=== PATIENT | female | born 1935 | race Caucasian/White ===

== ENCOUNTER 2019-06-25 14:52 | Inpatient (IN) | payer MEDICARE ==
[~2019-06-25] VITALS: Ht 152.4 cm; Wt 72.6 kg
[2019-06-28] MEDS ORDERED: GLIPIZIDE10 MG PO (13:56)
[2019-06-28] MEDS ORDERED: TIROSINT50 MCG PO (13:56)
[2019-06-28] MEDS ORDERED: LOVASTATIN10 MG PO (13:57)
[2019-06-28] MEDS ORDERED: LOSARTAN-HCTZ1 EAC1 PO (13:57)
[2019-06-28 14:48] LABS: BASOPHILS 0.1 % (0-2); EOSINOPHILS 1.2 % (0-7); HEMATOCRIT 36.3 % (36.0-48.0); IMMATURE GRANULOCYTES 0.5 % (0-5); LYMPHOCYTES 14.4 % (15-50); MCH 29.1 pg (26.0-34.0); MCHC 33.1 g/dL (31.0-37.0); MCV 88.1 fL (80.0-100.0); MEAN PLATELET VOLUME 10.1 fL (7.4-10.4); MONOCYTES 7.2 % (2-11); NEUTROPHILS 76.6 % (40-80); PLATELET COUNT 294 10x3/uL (130-400); RBC 4.12 10x6/uL (4.00-5.40); RDW 13.6 % (11.5-14.5); WBC 9.3 10x3/uL (4.8-10.8)
[2019-06-28 15:15] LABS: ANION GAP 10.1 mmol/L (8-16); CARBON DIOXIDE 26.9 mmol/L (21.0-32.0); CREATININE - SERUM 1.4 mg/dL (0.6-1.3)
[2019-06-29] VITALS (15 sets, daily range): BP systolic 117–147; BP diastolic 57–99; Ht 152.4 cm; Wt 72.6 kg
[2019-06-29 10:27] LABS: BASOPHILS 0.2 % (0-2); EOSINOPHILS 0.9 % (0-7); HEMATOCRIT 30.1 % (36.0-48.0); IMMATURE GRANULOCYTES 0.2 % (0-5); LYMPHOCYTES 11.8 % (15-50); MCHC 33.2 g/dL (31.0-37.0); MCV 87.2 fL (80.0-100.0); MONOCYTES 2.3 % (2-11); NEUTROPHILS 84.6 % (40-80); RBC 3.45 10x6/uL (4.00-5.40); RDW 13.5 % (11.5-14.5)
[2019-06-29 10:28] LABS: PLATELET COUNT 231 10x3/uL (130-400); WBC 6.5 10x3/uL (4.8-10.8)
--- NOTE | 2019-06-29 13:38 | NUR ---
RESPONDS TO VERBAL AND WILL SQUEEZ BOTH HANDS
--- NOTE | 2019-06-29 13:45 | NUR ---
RECEIVED PT TO ROOM 2309 VIA BED FROM RECOVERY. WAS TOLD THAT GAVE A VERBAL ORDER TO INFUSE 2 UNITS PRBC FROM GENE RN. PT HARD TO AROUSE AND ONLY OPENS EYES TO NAME. VSS. PT RESTING IN BED WITH EYES CLOSED, ASSESSMENT COMPLETED PER FLOWSHEET, SEE FLOWSHEET FOR INFORMATION. WILL CONT TO MONITOR.
--- NOTE | 2019-06-29 15:00 | NUR ---
PT RESTING IN BED WITH EYES CLOSED. PT CONFUSED AND AROUSES TO VOICE STIMULI, PT DOES NOT KNOW HOW OLD SHE IS, WHERE SHE IS, OR WHY SHE IS IN THE HOSPITAL. REORIENTED PT TO TIME, PLACE AND SITUATION. PT FALLING ASLEEP WHILE TALKING. WILL CONT TO MONITOR.
--- NOTE | 2019-06-29 17:37 | NUR ---
SPOKE WITH DAUGHTER ON PHONE, UPDATE GIVEN. WILL CONT TO MONITOR.
--- NOTE | 2019-06-29 18:50 | NUR ---
PT IS SITTING UP IN BED WITH EYES CLOSED. PT OPENS EYES WHEN CALLED NAME. SHE IS ONLY A&O TO HERSELF. VSS. PT HAD CRANIOTOMY TODAY. INCSION IS CDI. PT IS GETTING HER SECOND UNIT OF BLOOD AT THIS TIME INTO THE LEFT CHEST SUCLAVIN. WHEN ASKED IF IN ANY PAIN THE PT VOICES"NO". WILL PERFORM FULL ASSESSMENT ADN DOC IN FLOW SHEET. BED IS LOW,SIDE RAISLX2,CALL LIGHT WITHIN REACH. BED ALARM IS ON
--- NOTE | 2019-06-29 20:00 | NUR ---
PT IS RESTING IN BED WATCHING TV. VSS. HE SEEMS TO BECOMING MORE ALERT AND CONCIOUS THAN EARLIER. SHE IS ONLY DISORIENTED TO TIME. SHE ASKED ME WHAT TIME IT WAS AND I TOLD HER. SHE VOICES NO PAIN OR NEEDS. HOB IS AT 35DEGREES. BED IS LOW,SIDE RAISLX2,CALL LIGHT WITHIN REACH. BED ALARM IS ON
--- NOTE | 2019-06-29 22:03 | NUR ---
PT IS RESTING IN BED A&OX3 AT THIS TIME. DISORIENTED TO TIME. VSS. I ASKED IF SHE WAS EXSPERIENCING ANY PAIN AND SHE VOICED"NO NOT RIGHT NOW". BLOOD IS FINISHED AT THIS TIME. PROVIDED PT WITH NEW WATER CUP. ALSO PROVIDED CLYCERIN SWABS FOR HER MOUTH. PT VOICED "YEA THAT HELPED". BED IS LOW,SIDE RAILSX2, CALL LIGHT WITHIN REACH. WILL CONINTUE TO MONITOR
[2019-06-30] VITALS (24 sets, daily range): BP systolic 123–167; BP diastolic 56–78
--- NOTE | 2019-06-30 00:30 | NUR ---
PT IS RESTING IN BED WITH EYES CLOSED. HOB IS ELEVATED AT 45 DEGREES. VSS. NO NEEDS OR COMPLAINTS. BED IS LOW,SIDE RAISLX2,CALL LIGHT WITHIN REACH. WILL CONINTUE TO MONITOR
--- NOTE | 2019-06-30 03:13 | NUR ---
PT IS RESTING IN BED WITH EYES CLOSED. WAKES EASILY. VOICES"NO" TO ANY PAIN. VSS. WILL PERFORM RE-ASSESSMENT AT THIS TIME AND DOC IN FLOW SHEET. BED IS LOW,SIDE RAILSX2,CALL LIGHT WITHIN REACH. WILL CONTINUE TO MONITOR
--- NOTE | 2019-06-30 05:27 | NUR ---
PT IS RESTING IN BED WITH EYES CLOSED. VSS. BED IS LOW,SIDE RAILSX2,CALLL GIHT WITHIN REACH. BED ALARM IS ON
--- NOTE | 2019-06-30 06:28 | NUR ---
PT IS RESTING IN BED AWAKE. VSS. VOICES"NO" TO PAIN. HANNAH ASSESSMENT DONE AND CHARTED IN FLOWSHEET. PROVIDED WITH NEW ICE WATER. BED IS LOW,SIDE RAISLX2,CALL LIGHT WITHIN REACH. WILL CONINTUE TO MONITOR
--- NOTE | 2019-06-30 07:00 | NUR ---
BEDSIDE REPORT RECEIVED. SHIFT ASSESSMENT COMPLETED PER FLOWSHEET, SEE FLOWSHEET FOR INFORMATION. PT RESTING IN BED WITH EYES CLOSED. PT MORE ALERT & ORIENTED THAN YESTERDAY, BUT PT STILL STATES SHE IS AT [facility]. REORIENTED PT TO PLACE. VSS. PT DENIES ANY ACUTE NEEDS OR DISTRESS AT THIS TIME. CALL LIGHT IN REACH, BED IN LOWEST POSITION. WILL CONT TO MONITOR.
--- NOTE | 2019-06-30 09:00 | NUR ---
PT RESTING IN BED WATCHING TV, PT STILL VERY CONFUSED. PT YELLING "HELP" CHECKED ON PT AND SHE SAID "I JUST WANT MY BREAKFAST, GIVE IT TO ME NOW" REORIENTED PT TO BEING IN THE HOSPITAL AND WE HAVE TO WAIT FOR THE BREAKFAST TRAYS TO GET HERE. PT MAKING INCOMPLETE SENTENCES, WORDS DO NOT GO TOGETHER AND PT IS VISUALLY UPSET WITH "SAYING THE WRONG WORDS". WILL CONT TO MONITOR.
--- NOTE | 2019-06-30 11:00 | NUR ---
REASSESSMENT COMPLETED PER FLOWSHEET, SEE FLOWSHEET FOR INFORMATION. AT BEDSIDE. VSS. WILL CONT TO MONITOR.
[2019-06-30 11:55] LABS: HEMATOCRIT 36.7 % (36.0-48.0); HEMOGLOBIN 12.5 g/dL (12-16); MCHC 34.1 g/dL (31.0-37.0); MEAN PLATELET VOLUME 10.1 fL (7.4-10.4); PLATELET COUNT 241 10x3/uL (130-400); RBC 4.17 10x6/uL (4.00-5.40); RDW 13.6 % (11.5-14.5); WBC 24.5 10x3/uL (4.8-10.8)
[2019-06-30 12:00] LABS: ANION GAP 15.5 mmol/L (8-16); CALCIUM 8.3 mg/dL (8.5-10.1); CARBON DIOXIDE 20.8 mmol/L (21.0-32.0); CREATININE - SERUM 2.1 mg/dL (0.6-1.3); POTASSIUM - SERUM 4.3 mmol/L (3.5-5.1)
[2019-06-30 12:59] LABS: LYMPHOCYTES 5 % (15-50); NEUTROPHILS 94 % (40-80); PLATELET ESTIMATE NORMAL
--- NOTE | 2019-06-30 13:00 | NUR ---
DAUGHTER AT BEDSIDE, UPDATE GIVEN. DAUGHTER AGREES THAT PT IS CONFUSED. VSS. NO ACUTE NEEDS OR DISTRESS NOTED AT THIS TIME. WILL CONT TO MONITOR.
--- NOTE | 2019-06-30 15:00 | NUR ---
REASSESSMENT COMPLETED PER FLOWSHEET, SEE FLOWSHEET FOR INFORMATION. CHG BEDBATH GIVEN WITH COMPLETE LINEN CHANGE. PT ABLE TO TURN SELF AND ASSIST WITH BEDBATH. NOTED SMALL SCABS ON PT BUTTOCKS, PT STATED THOSE ARE "MY SITTING BUMPS FROM WHERE I SIT IN MY GREEN CHAIR". BOUDREAUXS APPLIED TO BUTTOCKS. PT DENIES ANY ACUTE NEEDS OR DISTRESS AT THIS TIME. VSS. WILL CONT TO MONITOR.
--- NOTE | 2019-06-30 17:00 | NUR ---
GAVE PT HER DINNER TRAY, PT ATE 25% OF TRAY AND INSISTED I TAKE THE TRAY "RIGHT AWAY, GET IT OUT OF MY SIGHT" TOOK TRAY PER REQUEST. VSS. WILL CONT TO MONITOR.
--- NOTE | 2019-06-30 21:27 | NUR ---
APON CHECKING ON PT SHE VOICED"I THINK I NEED TO GO TO THE BATHROOM". I ASSISTED PT VIA ONE ASSIST TO BEDSIDE CAMMODE. PT PASSED ALOT OF GAS AND VOICED"WELL I GUESS THATS IT, BUT I FEEL MUCH BETTER". ASSISSTED BACK TO BED SAFELY. VSS. BED IS LOW,SIDE RAISLX2,CALL LIGHT WITHN REACH. WILL CONINTUE TO MONITOR
--- NOTE | 2019-06-30 23:08 | NUR ---
PT IS RESTING IN BED WITH EYES CLOSED. VSS. BED IS LOW,SIDE RAILSX2,CALL LIGHT WITHIN REACH. WILL CONITNUE TO [facility]ANIA
[2019-07-01] VITALS (16 sets, daily range): BP systolic 127–167; BP diastolic 56–75
--- NOTE | 2019-07-01 00:52 | NUR ---
PT IS RESTING IN BED WITH EYES CLOSED. VSS. BED IS LOW,SIDE RAISLX2,CALL LGT WTIHIN REACH. WILL CONITNUE TO MONITOR
--- NOTE | 2019-07-01 03:20 | NUR ---
PT IS RESTING IN BED WITH EYES CLOSED. AWAKES EAISALY. SHE IS ONLY CONFUSED TO WHAT TIME IT IS. VOICES "NO" TO PAIN. WILL PERFOR RE-ASSESSMENT AND DOC IN FLOW SHEET. VSS. SHE REPOSTIONS ON HER OWN. BED IS LOW,SIDE RAISLX2,CALL LIGHT WITHIN REACH. [facility]
--- NOTE | 2019-07-01 05:37 | NUR ---
PT IS RESTIGN IN BED WITH EYES CLOSED. AWAEKS EAISLY AND DRIFTS BACK TO SLEEP. VSS. BED IS LOW,SIDE RAISLX2,CALL LIGHT WTIHIN REACH. WILL CONTINUE TO MONITOR
--- NOTE | 2019-07-01 06:36 | NUR ---
PT IS RESTING IN BED WITH EYES CLOSED, WAKES EAISLY. SHE IS A&OX3 ONLY CONFUSED TO WHAT TIME IT IS. SHE VOICES"NO" TO PAIN. SHE ASKED IF SHE COULD HAVE A BLACK CUP OF COFFEE AND I PROVIDED HER WITH A FRESH CUP AND A WATER CUP. HER VSS. SHE REPOSITIONED HERSELF UP IN THE BED TO DRINK HER COFFEE. BED IS LOW,SIDE RASILX2,CALL LIGHT WITHIN REACH. WILL CONINTUE TO MONITOR
--- NOTE | 2019-07-01 07:00 | NUR ---
BEDSIDE REPORT RECEIVED. SHIFT ASSESSMENT COMPLETED PER FLOWSHEET, SEE FLOWSHEET FOR INFORMATION. PT RESTING IN BED WITH EYES OPEN. DENIES ANY ACUTE NEEDS OR DISTRESS AT THIS TIME. PT APPEARS MORE ORIENTED THAN YESTERDAY. VSS. WILL CONT TO MONITOR.
--- NOTE | 2019-07-01 09:00 | NUR ---
SPOKE WITH FAMILY, CODE RECEIVED, UPDATE GIVEN. VSS. PT DENIES ANY ACUTE NEEDS OR DISTRESS AT THIS TIME. WILL CONT TO MONITOR.
--- NOTE | 2019-07-01 11:00 | NUR ---
SPOKE WITH ON THE PHONE, NEW ORDERS RECEIVED. PT RESTING IN BED WITH EYES CLOSED. WILL CONT TO MONITOR.
--- NOTE | 2019-07-01 13:55 | NUR ---
REPORT CALLED TO BE IN MED SURG TO ROOM 2236. VSS. PT REQUESTED TO GET A BEDBATH IN ICU RATHER THAN A SHOWER IN MED SURG SO I WILL TRANSFER PT AFTER BEDBATH IS GIVEN. WILL CONT TO MONITOR.
--- NOTE | 2019-07-01 15:02 | NUR ---
PATIENT RECEIVED AND ASSESSED. PATIENT THINKS KYLE IS PRESIDENT AND THAT SHE IS IN "HEAVEN" WHEN PRESSED FURTHER STATES SHE ASKS IF SHE IS ON THE FLOOR [employer] WORKS ON. I STATED YES. REQUESTED AND RECIEVED ICE WATER. STATES SHE HASN'T HAD A BM SINCE TUESDAY BEFORE SHE CAME IN. BOWEL SOUNDS ARE HYPERACTIVE X 4 QUADS. PATIENT STATES SHE IS HUNGRY. S1, S2 PRESENT. RADIAL AND PEDAL PULSES PALPATED. LUNG SOUNDS CTA. 19 RANDALL BEHIND LEFT EAR WELL APPROXIMATED WITH SOME BLOODY DRAINAGE. ABD PAD OVER RANDALL AND KOBAN WRAPPED AROUND HEAD. SKIN WNL EXCEPT 2 SCABS ON LEFT BUTTOCK AND 4 SCABS ON RIGHT BUTTOCK. IV THERAPY REMOVED FROM LEFT HAND BEFORE ARRIVAL TO MS ROOM. DRESSING IN PLACE OVER IT. RIGHT RADIAL ART LINE REMOVED 06/29 TOLD IN REPORT. DRESSING CDI. WILL MONITOR FOR BLEEDING. BED ALARM ON. CL IN REACH. TM
--- NOTE | 2019-07-01 15:15 | NUR ---
ROBYN [phone]. STEPPED OUT OF ROOM GAVE ME NUMBER IN CASE FATHER WOKE UP AND WAS AGITATED. BED ALARM ON. PATIENT RESTING. TM
--- NOTE | 2019-07-01 18:42 | NUR ---
DRESSING CHANGE COMPLETED. WASHED WITH WOUND PAPER TWISTER TENDER. SOME DRIED BLOOD AROUND RANDALL. PATIENT STATES SHE HAS BEEN ASLEEP SINCE 1500. HAS ACTUALLY BEEN ASLEEP SINCE 1700. BED ALARM ON. CL IN REACH. TM
[2019-07-02 00:51] VITALS: BP 153/64
[2019-07-02 04:00] VITALS: BP 177/65
[2019-07-02 06:27] LABS: BASOPHILS 0 % (0-2); EOSINOPHILS 0.1 % (0-7); HEMATOCRIT 33.2 % (36.0-48.0); HEMOGLOBIN 11.2 g/dL (12-16); IMMATURE GRANULOCYTES 0.4 % (0-5); LYMPHOCYTES 9.5 % (15-50); MCH 29.9 pg (26.0-34.0); MCHC 33.7 g/dL (31.0-37.0); MCV 88.8 fL (80.0-100.0); MEAN PLATELET VOLUME 9.8 fL (7.4-10.4); MONOCYTES 6.7 % (2-11); NEUTROPHILS 83.3 % (40-80); PLATELET COUNT 202 10x3/uL (130-400); RBC 3.74 10x6/uL (4.00-5.40); RDW 13.7 % (11.5-14.5)
[2019-07-02 06:29] LABS: WBC 16.3 10x3/uL (4.8-10.8)
[2019-07-02 06:30] LABS: ANION GAP 10.2 mmol/L (8-16); CALCIUM 8.7 mg/dL (8.5-10.1); CARBON DIOXIDE 25.4 mmol/L (21.0-32.0)
[2019-07-02 06:34] LABS: CREATININE - SERUM 1.4 mg/dL (0.6-1.3); POTASSIUM - SERUM 3.6 mmol/L (3.5-5.1)
--- NOTE | 2019-07-02 08:45 | NUR ---
PATIENT IN BED WITH IV ITNACT. NO COMPLAINTS OR SIGNS OF DISTRESS. CALL LIGHT WITHIN REACH.
[2019-07-02 09:07] VITALS: BP 154/67
[2019-07-02] MEDS ORDERED: MEDROL DOSE PACK4 MG PO (10:30)
--- NOTE | 2019-07-02 12:30 | NUR ---
PATIENT HAS VOIDED 2 X WITH NO PROBLEMS AT THIS TIME.
--- NOTE | 2019-07-02 13:17 | NUR ---
rehab prescreem: thank you for this eval this pt has [facility] insurance because of holiday unable to get prior auth todays and will have to wait til tomorrow. However the patient is refusing rehab and pt is wanting to go home. will check back tomorrow before starting the prior auth. once again thank you for this eval. facundo morales lpn clinical liasion
--- NOTE | 2019-07-02 14:33 | MORECARE ---
CASE MANAGEMENT DISCHARGE SUMMARY PATIENT: WALI GALAN UNIT: [id number] ADM DATE: 06/29/19 AGE: 83 : 36 SEX: F ROOM/BED: D.[facility] AUTHOR: KAILEY ELLIS PHYSICIAN: REFERRING PHYSICIAN: THEODORE AGUILAR MD DATE OF SERVICE: 07/02/19 Discharge Plan Patient Name: WALI GALAN [facility] [facility] 1935 Planned Disposition: Home Anticipated Discharge Date: Discharge Date: Expected LOS: Initial Reviewer: [email or web address] Initial Review Date: 06/29/2019 Generated: 07/02/19 3:33 pm DCPIA - Discharge Planning Initial Assessment Updated by [email or web address]: Hilda Ruffin on 07/02/19 2:31 pm * Is the patient Alert and Oriented? Yes * How many steps to enter\exit or inside your home? * PCP VERSER * [facility] * Preadmission Environment Home with Family * ADLs Independent * Equipment None * List name and contact numbers for known caregivers / representatives who currently or will assist patient after discharge: NIGEL GARNICA - [facility]- [phone] * Verbal permission to speak to the caregivers and representatives has been obtained from the patient. Yes * Community resources currently utilized None * Additional services required to return to the preadmission environment? No * Can the patient safely return to the preadmission environment? Yes * Has this patient been hospitalized within the prior 30 days at any hospital? No Patient Name: WALI GALAN Page [phone] at 1433 All edits/amendments must be made on the electronic document DICTATION DATE: 07/02/19 1433 GROUND WATER CONTRACTOR: KARISHMA 07/02/19 1433 RPT#: [id number] DC DATE: STATUS: ADM IN [facility] [address] [place] [address] END OF REPORT
--- NOTE | 2019-07-02 14:40 | MORECARE ---
CASE MANAGEMENT DISCHARGE SUMMARY PATIENT: WALI GALAN UNIT: [id number] ADM DATE: 06/29/19 AGE: 83 : 36 SEX: F ROOM/BED: D.2236 AUTHOR: CALEB,DOC PHYSICIAN: REFERRING PHYSICIAN: THEODORE AGUILAR MD DATE OF SERVICE: 07/02/19 Discharge Plan Patient Name: WALI GALAN Facility: [facility]:[place] : 1935 Planned Disposition: Home Anticipated Discharge Date: Discharge Date: Expected LOS: Initial Reviewer: [email or web address] Initial Review Date: 06/29/2019 Generated: 07/02/19 3:40 pm Comments DCP- Discharge Planning Updated by [email or web address]: Hilda Ruffin on 07/02/19 1:[address] Patient Name: WALI GALAN Admission Status: Elective Accout number: [id number] Admission Date: 06-29-2019 : 1935 Admission Diagnosis: Attending: THEODORE AGUILAR Current LOS: 3 Anticipated DC Date: Planned Disposition: Home Primary Insurance: [facility] [employer] Discharge Planning Comments: CM met with patient to complete initial dc planning assessment. CM educated patient on the CM role and verbal consent given by patient to complete assessment. Patient lives at home with family. Patient is independent. At discharge patient plans to return home and feels this is a safe discharge. CM discussed availability of home health, rehab services, and medical equipment. Patient states her son lives with her and she has family that all live close by. Patient denies any need for rehab or home health. Patient will have family to transport home. Patient denied known discharge needs at this time. CM will continue to follow and will assist as needed with dc plans/needs. D/C IMM signed 07/02/19 @1203 Cash Applications Analyst: Hilda Ruffin DCPIA - Discharge Planning Initial Assessment Updated by [email or web address]: Hilda Ruffin on 07/02/19 2:31 pm * Is the patient Alert and Oriented? Yes * How many steps to enter\exit or inside your home? * PCP VERSER * [facility] * Preadmission Environment Home with Family * ADLs Independent * Equipment None * List name and contact numbers for known caregivers / representatives who currently or will assist patient after discharge: NIGEL GARNICA - DAUGHTER- [phone] * Verbal permission to speak to the caregivers and representatives has been obtained from the patient. Yes * Community resources currently utilized None * Additional services required to return to the preadmission environment? No * Can the patient safely return to the preadmission environment? Yes * Has this patient been hospitalized within the prior 30 days at any hospital? No Coverage Notice Reviewer: [email or web address] Armin Ruffin Notice Issued Date-Time: 07/02/2019 12:03 Notice Type: IM Discharge Notice Notice Delivered To: Patient Relationship to Patient: Self Latin Professor Name: Delivery Method: HAND - Hand Delivered Lisa Days: Prior Verbal Notification: Recipient Understood Notice: Yes Recipient Signature: Yes Med Rec Note Co-signed by Attending: Coverage Notice Comment: Last DP export: 07/02/19 1:33 p Patient Name: WALI GALAN Page [phone] at 1440 All edits/amendments must be made on the electronic document DICTATION DATE: 07/02/19 1440 TECHNICAL OPERATIONS MANAGER: KARISHMA 07/02/19 1440 RPT#: [id number] DC DATE: STATUS: ADM IN [facility] [address] [place] [address] END OF REPORT
--- NOTE | 2019-07-02 15:00 | NUR ---
PATIENT RECIEVED DC INSTRUCTIONS. VERBALIZED UNDERSTANDING. NO QUESTIONS AT THIS TIME. CVL REMOVED WITH CATH TIP INTACT, PRESSURE HELD AND THEN DRESSING PLACED WHEN BLEEDING STOPPED. PATIENT TOLERATED WITH SMALL AMOUNT OF PAIN. DRESSING TO HEAD CHANGED. INCISION IS CLEAN AND DRY WITH RANDALL INTACT. NO DRAINAGE NOTED AT THIS TIME. CLEANED WITH WOUND CARE SLIP FEEDER AND NEW GAUZE APPLIED. ESCORTED PATIENT AND PERSONAL BELONGINGS OUT TO CAR AT THIS TIME FOR DC.
--- NOTE | 2019-07-02 17:31 | MORECARE ---
CASE MANAGEMENT DISCHARGE SUMMARY PATIENT: WALI GALAN UNIT: [id number] ADM DATE: 06/29/19 AGE: 83 : 36 SEX: F ROOM/BED: D.2236 AUTHOR: CALEB,DOC PHYSICIAN: REFERRING PHYSICIAN: THEODORE AGUILAR MD DATE OF SERVICE: 07/02/19 Discharge Plan Patient Name: WALI GALAN Facility: [facility]:[place] : 1935 Planned Disposition: Home Anticipated Discharge Date: Discharge Date: 07/02/2019 Expected LOS: Initial Reviewer: [email or web address] Initial Review Date: 06/29/2019 Generated: 07/02/19 6:30 pm Comments DCP- Discharge Planning Updated by [email or web address]: Hilda Ruffin on 07/02/19 1:[address] Patient Name: WALI GALAN Admission Status: Elective Accout number: [id number] Admission Date: 06-29-2019 : 1935 Admission Diagnosis: Attending: THEODORE AGUILAR Current LOS: 3 Anticipated DC Date: Planned Disposition: Home Primary Insurance: [facility] [employer]UT[employer] Discharge Planning Comments: CM met with patient to complete initial dc planning assessment. CM educated patient on the CM role and verbal consent given by patient to complete assessment. Patient lives at home with family. Patient is independent. At discharge patient plans to return home and feels this is a safe discharge. CM discussed availability of home health, rehab services, and medical equipment. Patient states her son lives with her and she has family that all live close by. Patient denies any need for rehab or home health. Patient will have family to transport home. Patient denied known discharge needs at this time. CM will continue to follow and will assist as needed with dc plans/needs. D/C IMM signed 07/02/19 @1203 Statement Distribution Clerk: Hilda Ruffin DCPIA - Discharge Planning Initial Assessment Updated by [email or web address]: Hilda Ruffin on 07/02/19 2:31 pm * Is the patient Alert and Oriented? Yes * How many steps to enter\exit or inside your home? * PCP VERSER * [facility] * Preadmission Environment Home with Family * ADLs Independent * Equipment None * List name and contact numbers for known caregivers / representatives who currently or will assist patient after discharge: NIGEL GARNICA - [facility]- [phone] * Verbal permission to speak to the caregivers and representatives has been obtained from the patient. Yes * Community resources currently utilized None * Additional services required to return to the preadmission environment? No * Can the patient safely return to the preadmission environment? Yes * Has this patient been hospitalized within the prior 30 days at any hospital? No Coverage Notice Reviewer: [email or web address] Armin Ruffin Notice Issued Date-Time: 07/02/2019 12:03 Notice Type: IM Discharge Notice Notice Delivered To: Patient Relationship to Patient: Self Pens And Pencils Repairer Name: Delivery Method: HAND - Hand Delivered Lisa Days: Prior Verbal Notification: Recipient Understood Notice: Yes Recipient Signature: Yes Med Rec Note Co-signed by Attending: Coverage Notice Comment: Last DP export: 07/02/19 1:40 p Patient Name: WALI GALAN Page [phone] at 1731 All edits/amendments must be made on the electronic document DICTATION DATE: 07/02/191729 DIPLOMATIC COURIER: KARISHMA 07/02/191729 RPT#: [id number] DC DATE:07/02/19 STATUS: DIS IN [facility] [address] [place] [address] END OF REPORT
== END 2019-07-02 17:10 | disposition home or self-care (01) | DRG 25 ==
LOC: D.SDCHOLD 06-28 14:00 → D.ICU 06-29 05:30 → D.SDCHOLD 06-29 07:30 → D.ICU 06-29 12:29 → D.SDCHOLD 06-29 15:00 → D.MS 07-01 15:06
PROVIDERS: Anesthesiology; Internal Medicine Nephrology; ADMIT Neurological Surgery; ATTEND Neurological Surgery
PROC: 00B00ZZ Excision of Brain, Open Approach (ICD-10-PCS; principal; 2019-06-29 07:30)
DX: D32.0 Benign neoplasm of cerebral meninges (principal); G93.6 Cerebral edema; N17.9 Acute kidney failure, unspecified; E87.1 Hypo-osmolality and hyponatremia; E11.65 Type 2 diabetes mellitus with hyperglycemia; I10 Essential (primary) hypertension; D64.9 Anemia, unspecified; E03.9 Hypothyroidism, unspecified